=== PATIENT | female | born 1975 | race Caucasian/White ===

== ENCOUNTER → 2017-11-18 | Outpatient (CLI) | payer BC ==
[~2017-11-18] MED LIST: ACE3 PO; ACET-3143 PO; BUSP15TA69 PO; ERYT-80 PO; HYDR-2966 PO; HYDR2TAB4 PO; IBU800 PO; IBUP800T37 PO; IRO150 PO; MULT-775 PO; NORG1TAB6 PO; POTA8CAP9 PO; RANI-324 PO; ZINC50TA71 PO
--- NOTE | 2017-11-22 17:18 | RADIOLOGY IMAGING REPORT ---
FACILITY: [facility] [place] PATIENT NAME: BERNARDINO HICKEY : [id number] MR: [id number] V: [id number] EXAM DATE: ORDERING PHYSICIAN: GAB BULLARD TECHNOLOGIST: Angélica Ordaz PROCEDURE: LEFT BREAST ULTRASOUND COMPARISON:None. INDICATIONS:FURTHER EVALUATION FINDINGS: The upper outer quadrant of the left breast was imaged sonographically revealing no sonographic correlate. Additional images were also obtained of the upper medial quadrant of the left breast likewise revealing no significant abnormality. Incidental note of a tiny 2 mm cyst in the 5 o'clock position of the left breast. DIAGNOSTIC CATEGORY 2--BENIGN FINDING. RECOMMENDATIONS: ROUTINE MAMMOGRAM AND CLINICAL EVALUATION. IMPRESSION: BI-RADS 2: The focal area of increased density on today's mammogram likely represents a focal island of fibroglandular tissue. No significant sonographic abnormality was identified in the left breast. Dictated by: Veronica Adam M.D. on 11/18/2017 at 15:23 Transcribed by: REHAN on 11/18/2017 at 16:38 Approved by: Veronica Adam M.D. on 11/22/2017 at 17:17 [facility]
--- NOTE | 2017-11-22 17:18 | RADIOLOGY IMAGING REPORT ---
FACILITY: [facility] PATIENT NAME: BERNARDINO HICKEY : [id number] MR: [id number] V: [id number] EXAM DATE: [id number] ORDERING PHYSICIAN: GAB BULLARD TECHNOLOGIST: Kaity Gleason PROCEDURE:LEFT DIGITAL DIAGNOSTIC MAMMOGRAM WITH 3D BREAST TOMOSYNTHESIS. COMPARISON:None. INDICATIONS:FURTHER EVALUATION. FINDINGS: The patient returns for spot compression views in the left MLO projection in addition to a medial lateral view of the left breast and a left XCC view. Focal area of increased density in the anterior upper portion of the left breast appear compressible. The focal area of increased density in the posterior upper portion of the left breast appeared partially compressible. This appeared to mostly dissipate on the medial lateral view. There is a small focal area of increased density in the far lateral portion of the left breast on the left XCC view. Today's left breast ultrasound revealed no sonographic correlate. This likely represents a small island of fibroglandular tissue. DIAGNOSTIC CATEGORY 2--BENIGN FINDING. RECOMMENDATIONS: ROUTINE MAMMOGRAM AND CLINICAL EVALUATION. IMPRESSION: BI-RADS 2: Focal area of increased density in the upper outer quadrant of the left breast likely represents a focal island of fibroglandular tissue. Dictated by: Veronica Adam M.D. on 11/18/2017 at 15:22 Transcribed by: REHAN on 11/18/2017 at 16:32 Approved by: Veronica Adam M.D. on 11/22/2017 at 17:17 [facility]
== END ==
LOC: MAMO 07:15
PROVIDERS: ATTEND Obstetrics & Gynecology
DX: R92.8 Other abnormal and inconclusive findings on diagnostic imaging of breast (principal)
CPT/HCPCS: 77065

== ENCOUNTER → 2018-01-22 | Outpatient (REF) | payer BC ==
[2018-01-22 12:36] LABS: PLATELET COUNT, AUTOMATED 200 K/uL (150-450)
== END ==
PROVIDERS: ATTEND Family Medicine
DX: R05 Cough (principal); R42 Dizziness and giddiness
CPT/HCPCS: 82040; 82247; 82310; 82374; 82435; 82565; 82947; 84075; 84132; 84155; 84295; 84450; 84460; 84520; 85025; 85379

== ENCOUNTER → 2018-02-05 | Outpatient (REF) | payer BC ==
[2018-02-05 12:53] LABS: PLATELET COUNT, AUTOMATED 222 K/uL (150-450)
== END ==
PROVIDERS: ATTEND Family Medicine
DX: R06.02 Shortness of breath (principal)
CPT/HCPCS: 82040; 82247; 82310; 82374; 82435; 82565; 82947; 84075; 84132; 84155; 84295; 84450; 84460; 84520; 85025; 85379